=== PATIENT | male | born 1990 | race Caucasian/White ===

== ENCOUNTER 2016-11-18 16:04 | Outpatient (CLI) | payer OTHER ==
--- NOTE | 2016-11-19 09:31 | XRAY Report ---
THREE-VIEW RIGHT KNEE: 11/18/2016 CLINICAL INDICATION: Pain. FINDINGS: AP, lateral, sunrise views of the right knee demonstrate previous ACL replacement. There is no evidence of acute fracture or dislocation. No effusion is present. IMPRESSION: POSTOPERATIVE CHANGES OF PREVIOUS ACL REPLACEMENT. JOB #: [id number] EXT JOB #:[id number]
== END 2016-11-18 16:05 | disposition home or self-care (01) ==
LOC: DI 16:04
PROVIDERS: ATTEND Physician Assistant Medical
DX: M25.561 Pain in right knee (principal)